=== PATIENT | male | born 1935 | race Caucasian/White ===

== ENCOUNTER → 2023-11-27 | Outpatient (BNV) | payer MEDICARE, BC, SELFPAY | PROVIDERS: PCP Hospitalist; Visit Provider Internal Medicine Hypertension Specialist | DX: N18.6 End stage renal disease (principal) | CPT/HCPCS: 90961 ==

== ENCOUNTER → 2023-12-28 | Outpatient (BNV) | payer MEDICARE, BC, SELFPAY | PROVIDERS: PCP Hospitalist; Visit Provider Internal Medicine Hypertension Specialist | DX: N18.6 End stage renal disease (principal) | CPT/HCPCS: 90961 ==

== ENCOUNTER → 2024-01-26 | Outpatient (BNV) | payer MEDICARE, BC, SELFPAY | PROVIDERS: PCP Hospitalist; Visit Provider Internal Medicine Hypertension Specialist | DX: N18.6 End stage renal disease (principal) | CPT/HCPCS: 90961 ==

== ENCOUNTER → 2024-02-26 | Outpatient (BNV) | payer MEDICARE, BC, SELFPAY | PROVIDERS: PCP Hospitalist; Visit Provider Internal Medicine Hypertension Specialist | DX: N18.6 End stage renal disease (principal) | CPT/HCPCS: 90962 ==

== ENCOUNTER → 2024-04-01 15:57 | Outpatient (BNVA) | payer MEDICARE, BC, SELFPAY | PROVIDERS: PCP Hospitalist; Visit Provider Internal Medicine Hypertension Specialist ==

== ENCOUNTER → 2024-04-27 | Outpatient (BNV) | payer MEDICARE, BC, SELFPAY | PROVIDERS: PCP Hospitalist; Visit Provider Internal Medicine Hypertension Specialist | DX: N18.6 End stage renal disease (principal) | CPT/HCPCS: 90961 ==

== ENCOUNTER → 2024-05-27 | Outpatient (BNV) | payer MEDICARE, BC, SELFPAY | PROVIDERS: PCP Hospitalist; Visit Provider Internal Medicine Hypertension Specialist | DX: N18.6 End stage renal disease (principal) | CPT/HCPCS: 90960 ==

== ENCOUNTER 2024-06-03 12:29 | Inpatient (IN) | payer MEDICARE, BC, SELFPAY ==
[2024-06-03] VITALS (14 sets, daily range): BP systolic 92–151; BP diastolic 36–98; PULSE 49–89; RESP 12–22; TEMP 36.1–36.9; O2SAT 94–100; BMI 22.7
--- NOTE | ~2024-06-03 | XR_ITS ---
EXAMINATION: XR CHEST CLINICAL INFORMATION: Generalized weakness, anemia COMPARISON: None available. TECHNIQUE: Frontal view of the chest was obtained. FINDINGS: Heart is enlarged with postsurgical changes overlying the mediastinum consistent with prior valve replacement and CABG. Right sided perm catheter is seen with the distal tip in the right atrium in good position. No acute vascular congestion is seen. Chronic appearing interstitial thickening noted. No focal airspace consolidations. No significant pleural effusions. Degenerative changes seen in the right shoulder joint XR/XR chest 1V IMPRESSION: No acute pulmonary process. Chronic appearing interstitial thickening. Cardiomegaly with postsurgical changes.
--- NOTE | ~2024-06-03 | CT_ITS ---
EXAMINATION: CT ABDOMEN AND PELVIS WITHOUT CONTRAST CLINICAL INFORMATION: Abdominal pain. Rectal bleeding. Anemia. COMPARISON: None available. TECHNIQUE: Multidetector volumetric imaging was performed from the superior aspect of the liver through the pubic symphysis. Sagittal and coronal reformatted images were obtained on the technologist's workstation. This CT examination was performed using dose optimization techniques as appropriate, variously including the following: *Automated exposure control *Adjustment of mA and/or kV according to patient size (this includes techniques or standardized protocols for targeted exams where dose is matched to indication/reason for exam; i.e. extremities or head) *Use of iterative reconstruction technique DLP: 428 mGy-cm FINDINGS: LUNG BASES: Heart size is enlarged. Heavy coronary artery calcifications. No pericardial effusion. Vascular calcifications of aorta. Lung bases normally aerated. LIVER, GALLBLADDER, AND BILIARY TREE: Low attenuating mass containing scattered coarse calcifications involving the posterior right lobe of liver, segment 7. Status post cholecystectomy. PANCREAS: Fatty atrophy of the pancreas. No acute abnormality of the pancreas. SPLEEN: Unremarkable. ADRENAL GLANDS: Unremarkable. KIDNEYS AND URETERS: The kidneys are normal in size, shape, and attenuation. No hydronephrosis, hydroureter, or calculi seen. No perinephric stranding. BLADDER: Bladder partially obscured by streak artifact from right hip replacement. No mass or calculus is evident. GASTROINTESTINAL TRACT: Sigmoid colon is redundant looping toward the right side of the abdomen. No acute abnormality of the bowel. There is no bowel wall thickening /edema. There is no bowel obstruction. There is a moderate volume of stool in the colon. The appendix is normal . The small bowel loops are unremarkable. The stomach is normal. There is no hiatal hernia. ABDOMINAL WALL: No significant hernia is appreciated. LYMPH NODES: Normal. VASCULAR: Vascular calcifications throughout the abdomen and the pelvis. There is no aneurysm. PELVIC VISCERA: Unremarkable. OSSEOUS STRUCTURES: Advanced multilevel degenerative spondylosis spine. Status post median sternotomy. Status post right hip replacement. Heterogeneous density of the bone. This is nonspecific. Could be due to osteopenia, however bony metastatic change has not excluded. Consider bone scan for follow-up. There are chronic appearing bone erosions at the superior endplate of the L4 vertebrae. CT/CT abdomen pelvis wo IV con IMPRESSION: 1. No acute abnormality the abdomen or pelvis. 2. Low attenuating mass in the right lobe of liver. 3. Multifocal radiolucent and osteosclerotic lesions the visualized osseous skeleton suspicious for bony metastatic disease. Bone scan may be helpful for follow-up. Fleischner guidelines were followed.
--- NOTE | 2024-06-03 12:59 | ECG_ITS ---
Test Reason : ANEMIA/WEAKNESS Blood Pressure : / mmHG Vent. Rate : 069 BPM Atrial Rate : 000 BPM P-R Int : 000 ms QRS Dur : 160 ms QT Int : 462 ms P-R-T Axes : 000 262 -05 degrees QTc Int : 495 ms Atrial fibrillation with premature ventricular or aberrantly conducted complexes Right bundle branch block Left anterior fascicular block Abnormal ECG No previous ECGs available Referred By: Samantha Jenkins Electronically Signed By:Vasu Kiran
--- NOTE | 2024-06-03 13:01 | ED_ITS ---
HPI - General Adult General Chief complaint: General Medical Stated complaint: (NO AGE GIVEN) ABN LABS,DIALYSIS THIS AM PER EMS Time Seen by Provider: 06/03/24 12:48 Source: patient, family ( spouse) and EMS Mode of arrival: EMS Limitations: no limitations History of Present Illness ED Provider: DR. Jenkins HPI narrative: 88-year-old male with known history of end-stage renal disease follow-up with Dr. Castillo who sent the patient to the ER after had 2 hours dialysis session today for further evaluation of generalized weakness, dark stool, low H and H with hemoglobin of 7.4. patient still able to make few cc of urine daily. Patient also with known history of atrial fibrillation taking Eliquis. Noted dark stool for the past few days, patient been having generalized weakness, and a of abdominal pain, neck pain. No fever, no chills, no bright red blood from rectum, no vomiting or nausea. Related Data Home Medications ?Medication ?Instructions ?Recorded ?Confirmed amlodipine 5 mg tablet 5 mg PO DAILY 04/01/24 apixaban 2.5 mg tablet (Eliquis) 2.5 mg PO BID 04/01/24 doxazosin 4 mg tablet 4 mg PO DAILY 04/01/24 insulin glargine 100 unit/mL (3 5 - 10 unit subcut QPM 04/01/24 mL) subcutaneous pen (Lantus Solostar U-100 Insulin) isosorbide mononitrate 60 mg 60 mg PO DAILY 04/01/24 tablet,extended release 24 hr oxycodone 5 mg tablet 5 mg PO TID PRN 04/01/24 Previous Rx's ?Medication ?Instructions ?Recorded prednisone 10 mg tablet 10 mg PO DAILY #30 tabs 05/21/24 Allergies Allergy/AdvReac Type Severity Reaction Status Date / Time No Known Allergies Allergy Verified 06/03/24 12:52 Review of Systems 2 Review of Systems: All other systems are reviewed and are negative Constitutional: Reports as per HPI and Reports no additional constitutional complaints Eyes: Reports as per HPI and Reports no additional eye complaints Reports system reviewed and no additional complaints, except as documented Cardiovascular: Reports as per HPI and Reports no additional cardiovascular complaints Respiratory: Reports as per HPI and Reports no additional respiratory complaints Gastrointestinal: Reports as per HPI and Reports no additional gastrointestinal complaints Genitourinary: Reports no additional female genitourinary complaints Musculoskeletal: Reports no additional musculoskeletal complaints Skin/Breast: Reports system reviewed and no additional complaints, except as docu Psychiatric: Reports no additional psychiatric complaints Endocrine: Reports no additional endocrine complaints Hematologic/Lymphatic: Reports no additional hematologic/lymphatic complaints Allergic/Immunologic: Reports no additional allergic/immunologic complaints Reports system reviewed and no additional complaints, except as documented and Reports Abnormal speech present [facility] Social History Social History Smoked in Last 30 Days: No Use of substances other than those prescribed or required for medical reasons: No Advance Directives: No Advance Directives Information Provided: Yes Physical Exam ED Vital Signs: Vital Signs - 24 hr 06/03/24 12:49 06/03/24 13:24 06/03/24 14:21 Temperature 98.4 F Pulse Rate 58 Respiratory Rate 18 Blood Pressure 92/42 L 129/36 L 151/75 H Pulse Oximetry 94 Oxygen Delivery Method Room Air Oxygen Flow Rate 06/03/24 14:30 06/03/24 14:53 06/03/24 15:38 Temperature 98.2 F 98.1 F Pulse Rate 64 65 54 Respiratory Rate 16 18 12 Blood Pressure 151/75 H 100/46 L 132/74 Pulse Oximetry Oxygen Delivery Method Nasal Cannula Oxygen Flow Rate 06/03/24 15:43 06/03/24 16:45 Temperature 98.1 F Pulse Rate 71 Respiratory Rate 17 Blood Pressure 138/53 L Pulse Oximetry 100 96 Oxygen Delivery Method Nasal Cannula Nasal Cannula Oxygen Flow Rate 2 2 BMI result Body Mass Index 22.7 Vital signs have been reviewed and appear to be correct. Blood pressure elevated. Heart rate normal. Respiratory rate normal. Temperature normal. Oxygen saturation normal. Appearance: Alert. Oriented X3. No acute distress. Head: Normal external exam. Normocephalic. Atraumatic. No Nicolas signs noted. No raccoon eyes noted Eyes: PERRLA. EOMI. Conjunctiva and sclera normal. Eyelids normal. ENT: TM's Normal. Pharynx normal. Uvula midline. Moist mucous membranes. No trismus noted. No drooling noted. No muffled voice noted. Neck: Normal inspection. Neck supple. FROM. No adenopathy. Thyroid Normal. No meningeal signs. No neck mass noted. CVS: Normal heart rate and rhythm. Heart sound normal. No murmurs noted. Pulses normal throughout. Respiratory: No respiratory distress. Painless inspiration. Breath sounds normal. No wheezes/rales/rhonchi noted. Chest nontender. No accessory muscle usage noted or decreased air movement noted. Abdomen: Soft and nontender. Bowel sounds normal in all 4 quadrants. No distention noted. No organomegaly noted. No visible injury noted. Rectal exam: Dark stool was trace guaiac positive. Back: No CVA tenderness. Full range of motion noted. Skin: Skin warm and dry. Normal skin color. Normal skin turgor. No rashes/lesions/lacerations noted. Extremities: No lower extremity edema. Extremities exhibit normal range of motion. Extremities nontender. Neuro: Oriented X 3. Cranial nerve exam: II-XII are grossly intact No motor deficit. No sensory deficit. Reflexes normal. Course Reevaluation(s) Reevaluation #1: End-stage renal disease on dialysis with anemia according to Dr. Castillo no old labs to compare in our facility. Consider 2 units of blood transfusion, patient agreed and signed consent for the patient. PPI. Consider hospitalization for further GI bleed workup. Time: 13:05 Reevaluation #2: troponin is elevated likely secondary to CKD no delta change, no chest pain, no EKG Ischemic changes. Time: 17:32 Medications Administered Discontinued Medications Generic Name Dose Route Start Last Admin Trade Name Tyshawnq PRN Reason Stop Dose Admin Furosemide 20 mg 06/03/24 13:45 06/03/24 14:21 Furosemide 20 Mg/2 Ml Vial IVPUSH 06/03/24 13:46 20 mg ONCE ONE Administration Protocol Sodium Chloride 1,000 mls @ 500 mls/hr 06/03/24 12:59 06/03/24 13:19 Ns IV 06/03/24 14:58 Not Given .Q2H ONE Sodium Chloride 500 mls @ 500 mls/hr 06/03/24 13:30 06/03/24 14:04 Ns IV 06/03/24 14:29 0 mls/hr .Q1H ADA Infusion Pantoprazole Sodium 40 mg 06/03/24 13:05 06/03/24 13:21 Pantoprazole Sodium 40 Mg/10 Ml Vial IVPUSH 06/03/24 13:06 40 mg ONCE ONE Administration Medical Decision Making Differential Diagnosis Differential Diagnoses: The differential diagnosis associated with the presentation includes ( ACS, GI bleed, coagulopathy, electrolyte derangement, severe anemia, volume overload, dialysis needs.) Admission/Observation Consideration of admission/observation: Escalation of care including admission/observation considered Consult Healthcare Provider Management of the patient was discussed with: Hospitalist ( Dr. Negro) Lab Data MDM Lab Attestation statement: I reviewed the patient's lab results. 06/03/24 13:12 06/03/24 13:12 Labs: Lab Results 06/03/24 06/03/24 Range/Units 13:12 16:38 WBC 10.6 (4.8-10.8) X10*3/uL RBC 2.43 L (4.60-5.80) X10*6/uL Hgb 7.4 L (14.0-18.0) g/dl Hct 23.2 L (42.0-52.0) % MCV 95.5 (80.0-98.0) fL MCH 30.5 (27.0-33.0) pg MCHC 31.9 (31.0-36.0) g/dl RDW 17.2 H (11.0-16.0) % Plt Count 202 (160-400) X10*3/uL MPV 9.8 (9.4-12.4) fL Immature Gran % (Auto) 1.2 H (0.0-0.4) % Neut % (Auto) 73.7 H (45-73) % Lymph % (Auto) 13.4 L (20-40) % [place] % (Auto) 9.5 (2-11) % Eos % (Auto) 1.8 (0-4) % Baso % (Auto) 0.4 (0-2) % Lymph # (Auto) 1.4 (1.2-4.9) X10*3/uL [place] # (Auto) 1.0 (0.1-1.2) X10*3/uL Eos # (Auto) 0.2 (0.0-0.4) X10*3/uL Baso # (Auto) 0.0 (0.0-0.2) X10*3/uL Abs Immat Gran (auto) 0.13 H (0.00-0.03) X10*3/uL Absolute Neuts (auto) 7.8 (2.0-8.3) x10*3/uL Absolute Nucleated RBC 0.000 (0.0-0.012) X10*3/uL Nucleated RBC % (auto) 0.0 (0.0-0.2) /100WBC PT 16.9 H (11.1-13.3) SEC INR 1.4 H (0.9-1.1) APTT 31.0 (26.0-36.8) SEC Sodium 138 (135-145) mmol/L Potassium 4.6 (3.3-5.1) mmol/L Chloride 99 (96-108) mmol/L Carbon Dioxide 26 (22-29) mmol/L Anion Gap 18 (12-20) BUN 54 H (9-16) mg/dL Creatinine 5.43 H* (0.5-1.4) mg/dL Estim Creat Clear Calc 8.7 Estimated GFR 10 Random Glucose 162 H (60-115) mg/dL Calcium 9.0 (8.4-10.2) mg/dL Total Bilirubin 0.7 (0.0-1.0) mg/dL Direct Bilirubin 0.3 (0.0-0.5) mg/dL AST 12 (5-37) U/L ALT 5 (0-40) U/L Alkaline Phosphatase 45 (39-117) U/L Troponin I High Sens 275.1 H* 256.7 H* (<3.5-35.0) ng/L B-Natriuretic Peptide 824 H (<100) pg/mL Total Protein 6.1 L (6.5-8.0) g/dL Albumin 3.7 (3.5-5.0) g/dL Lipase 18 (8-78) U/L Stool Occult Blood POSITIVE (NEGATIVE) Blood Type A Positive Antibody Screen NEGATIVE Crossmatch See Detail Independent Interpretation I performed an independent interpretation of an: EKG ( AFib at 69 beats per minutes, was frequent PVCs, RBBB no old EKG to compare. ), Plain X-Ray (No acute pulmonary process. Chronic appearing interstitial thickening. Cardiomegaly with postsurgical changes. ) and CT Scan ( Abdomen pelvis:1. No acute abnormality the abdomen or pelvis. 2. Low attenuating mass in the right lobe of liver. 3. Multifocal radiolucent and osteosclerotic lesions the visualized osseous skeleton suspicious for bony metastatic disease. Bone scan may be helpful for follow-up. ) Radiology Impression Discussion of test interpretation with radiology: I have reviewed the radiologist's reading. Chronic Conditions Patient?s care impacted by: Other ( End-stage renal disease.) Critical Care Time Critical Care Time Critical Care Time: Yes Total Critical Care Time: 45 Attestation: The patient was critically ill with a high probability of imminent or life- threatening deterioration. I spent greater than 30 minutes of discontinuous time evaluating the patient, delivering critical care at the bedside, discussing evaluating data with consultants. Critical care time does not include time spent performing separately billable procedures or teaching. Time spent performing critical care was 45 minutes. Discharge Plan Discharge Clinical Impression: Anemia, Rectal bleed Patient Disposition: Admitted As Inpatient Print Language: Urdu
[2024-06-03 13:15] LABS: MANUAL DIFF FLAG NO
[2024-06-03 13:20] LABS: OBS Int Ctl Valid YES; OBS1 POSITIVE (NEGATIVE)
[2024-06-03] MEDS: 0.9 % Sodium Chloride 500 ML IV (13:21)
[2024-06-03] MEDS: Pantoprazole Sodium 40 MG/10 ML VIAL IVPUSH (13:21)
[2024-06-03 13:23] LABS: Basophils Percent Auto 0.4 % (0-2); Eosinophils Absolute Auto 0.2 X10*3/uL (0.0-0.4); Eosinophils Percent Auto 1.8 % (0-4); Hematocrit 23.2 % (42.0-52.0); Hemoglobin 7.4 g/dl (14.0-18.0); Imm Gran Abs Auto 0.13 X10*3/uL (0.00-0.03); Imm Gran Pct Auto 1.2 % (0.0-0.4); Lymphocytes Absolute Auto 1.4 X10*3/uL (1.2-4.9); Lymphocytes Percent Auto 13.4 % (20-40); Mean Corpuscular HGB Conc 31.9 g/dl (31.0-36.0); Mean Corpuscular Hemoglobin 30.5 pg (27.0-33.0); Mean Corpuscular Volume 95.5 fL (80.0-98.0); Mean Platelet Volume 9.8 fL (9.4-12.4); Monocytes Percent Auto 9.5 % (2-11); Neutrophils Absolute Auto 7.8 x10*3/uL (2.0-8.3); Neutrophils Percent Auto 73.7 % (45-73); Platelet Count 202 X10*3/uL (160-400); Red Blood Count 2.43 X10*6/uL (4.60-5.80); Red Cell Distribution Width 17.2 % (11.0-16.0); White Blood Count 10.6 X10*3/uL (4.8-10.8)
[2024-06-03 13:34] LABS: INTERNATIONAL NORM RATIO 1.4 (0.9-1.1); Prothrombin Time 16.9 SEC (11.1-13.3)
[2024-06-03 13:41] LABS: B Type Natriuretic Peptide 824 pg/mL (<100)
[2024-06-03 13:55] LABS: Alanine Aminotransferase 5 U/L (0-40); Albumin Level 3.7 g/dL (3.5-5.0); Alkaline Phosphatase 45 U/L (39-117); Anion Gap 18 (12-20); Aspartate Amino Transferase 12 U/L (5-37); Bilirubin Direct 0.3 mg/dL (0.0-0.5); Bilirubin Total 0.7 mg/dL (0.0-1.0); Blood Urea Nitrogen 54 mg/dL (9-16); Carbon Dioxide 26 mmol/L (22-29); Chloride 99 mmol/L (96-108); Glucose Random 162 mg/dL (60-115); Lipase 18 U/L (8-78); Potassium 4.6 mmol/L (3.3-5.1); Sodium 138 mmol/L (135-145); Total Protein 6.1 g/dL (6.5-8.0)
[2024-06-03 14:03] LABS: Troponin-I High Sensitivity 275.1 ng/L (<3.5-35.0)
[2024-06-03 14:04] LABS: Creatinine Clr Calc Pharmacy 8.7; Estimated Glomerular Filt Rate 10
--- NOTE | 2024-06-03 14:05 | PC.NURSE ---
Critical trop 275.1 and critical creatinine 5.43- primary RN and MD notified via [facility] [facility]
[2024-06-03] MEDS: Furosemide 20 MG/2 ML VIAL IVPUSH (14:21)
[2024-06-03 17:22] LABS: Troponin-I High Sensitivity 256.7 ng/L (<3.5-35.0)
--- NOTE | 2024-06-03 17:53 | PM.IMHP ---
History of Present Illness Date of Service: 06/03/24 Chief Complaint: melena 88M PMH ESRD, pafib on eliquis, cad s/p cabg, htn, , chronic systolic chf, TIA, dm, pvd, chronic unspecified pruritis on prednisone, sent in for anemia. Patient has been feeling weak over the last few days. Has noted black stools for 2-3 days. Had labs drawn 3 days prior to presentation and hemoglobin came back at 7.4. At hemodialysis was feeling weak so was sent into the ED for further eval. In ED black stools were occult positive. Patient denies chest pain, shortness of breath, fever, chills. Denies NSAID use. He does have history of GI bleeds of unclear origin. Review of Systems Review of Systems: Yes all other systems are reviewed and are negative [facility] Medical History (Updated 06/03/24 @ 17:58 by Chidi Beard MD) ESRD (end stage renal disease) Social History Smoked in Last 30 Days: No Use of substances other than those prescribed or required for medical reasons: No Advance Directives: No Advance Directives Information Provided: Yes Meds Allergies Allergy/AdvReac Type Severity Reaction Status Date / Time No Known Allergies Allergy Verified 06/03/24 12:52 Active Medications: Current Medications Acetaminophen (Acetaminophen 325 Mg Tablet) 650 mg PO Q6H PRN PRN Reason: Pain, Mild (Pain Scale 1-3), fever or headache Calcium Carbonate (Calcium Carbonate 750 Mg Tab.Chew) 750 mg PO Q4H PRN PRN Reason: Heartburn Glucose (Glucose Gel 15 Gm Gel..Gram.) 15 gm PO Q15M PRN; Protocol PRN Reason: per Hypoglycemia Standing Ord. Dextrose (D10) 250 mls @ 750 mls/hr IV Q15M PRN; Protocol PRN Reason: per Hypoglycemia Standing Ord. Insulin Human Lispro (Insulin Lispro 100 Unit/Ml 3 Ml Vial) 0 unit SUBCUT QIDACHS [facility]; Protocol Magnesium Hydroxide (Milk Of Magnesia 30 Ml Oral.Susp) 30 ml PO DAILY PRN PRN Reason: Constipation Melatonin (Melatonin 3 Mg Tablet) 6 mg PO BEDTIME PRN PRN Reason: Insomnia Pantoprazole Sodium (Pantoprazole Sodium 40 Mg/10 Ml Vial) 40 mg IVPUSH BID@0630,1630 [facility] Sodium Chloride (0.9 % Sodium Chloride Flush 3 Ml Syringe) 3 ml IVFLUSH QSHIFT [facility] Home Medications ?Medication ?Instructions ?Recorded ?Confirmed ?Last Taken ?Type amlodipine 5 mg tablet 5 mg PO DAILY 04/01/24 Unknown History apixaban 2.5 mg tablet (Eliquis) 2.5 mg PO BID 04/01/24 Unknown History doxazosin 4 mg tablet 4 mg PO DAILY 04/01/24 Unknown History insulin glargine 100 unit/mL (3 5 - 10 unit subcut QPM 04/01/24 Unknown History mL) subcutaneous pen (Lantus Solostar U-100 Insulin) isosorbide mononitrate 60 mg 60 mg PO DAILY 04/01/24 Unknown History tablet,extended release 24 hr oxycodone 5 mg tablet 5 mg PO TID PRN Panic Attack(S) 04/01/24 Unknown History atorvastatin 40 mg tablet 40 mg PO DAILY 06/03/24 Unknown History levothyroxine 25 mcg tablet 25 mcg PO QAM 06/03/24 Unknown History sodium zirconium cyclosilicate 10 g PO 06/03/24 Unknown History gram oral powder packet (Lokelma) Physical Exam Vital Signs and Narrative: Vital Signs: Last Vital Signs Temp 98.1 F 06/03/24 16:45 Pulse 71 06/03/24 16:45 Resp 17 06/03/24 16:45 BP 138/53 L 06/03/24 16:45 Pulse Ox 96 06/03/24 16:45 O2 Del Method Nasal Cannula 06/03/24 16:45 O2 Flow Rate 2 06/03/24 16:45 BMI result Body Mass Index 22.7 General: AO X 3, no acute distress Resp: CTA bilateral, no accessory muscles used CVS: S1,S2,RRR, murmur GI: soft, non tender, non distended Neuro: motor grossly intact, alert Results Labs 06/03/24 13:12 06/03/24 13:12 Labs: Laboratory Results - last 24 hr 06/03/24 06/03/24 13:12 16:38 MCV 95.5 MCH 30.5 MCHC 31.9 RDW 17.2 H Plt Count 202 MPV 9.8 Immature Gran % (Auto) 1.2 H Neut % (Auto) 73.7 H Lymph % (Auto) 13.4 L [place] % (Auto) 9.5 Eos % (Auto) 1.8 Baso % (Auto) 0.4 Lymph # (Auto) 1.4 [place] # (Auto) 1.0 Eos # (Auto) 0.2 Baso # (Auto) 0.0 Abs Immat Gran (auto) 0.13 H Absolute Neuts (auto) 7.8 Absolute Nucleated RBC 0.000 Nucleated RBC % (auto) 0.0 PT 16.9 H INR 1.4 H APTT 31.0 Anion Gap 18 Estim Creat Clear Calc 8.7 Estimated GFR 10 Random Glucose 162 H Calcium 9.0 Total Bilirubin 0.7 Direct Bilirubin 0.3 AST 12 ALT 5 Alkaline Phosphatase 45 Troponin I High Sens 275.1 H* 256.7 H* B-Natriuretic Peptide 824 H Total Protein 6.1 L Albumin 3.7 Lipase 18 Stool Occult Blood POSITIVE Blood Type A Positive Antibody Screen NEGATIVE Crossmatch See Detail Imaging Radiologist's Impressions: Impressions Chest X-Ray 06/03/24 13:40 IMPRESSION: No acute pulmonary process. Chronic appearing interstitial thickening. Cardiomegaly with postsurgical changes. Abdomen/Pelvis CT 06/03/24 15:49 IMPRESSION: 1. No acute abnormality the abdomen or pelvis. 2. Low attenuating mass in the right lobe of liver. 3. Multifocal radiolucent and osteosclerotic lesions the visualized osseous skeleton suspicious for bony metastatic disease. Bone scan may be helpful for follow-up. Fleischner guidelines were followed. Assessment and Plan (1) ESRD (end stage renal disease): Status: Acute Plan 88M PMH ESRD, pafib on eliquis, cad s/p cabg, htn, , chronic systolic chf, TIA, dm, pvd, sent in for anemia Acute blood loss anemia Suspect upper GI bleed Hold apixaban IV ppi GI eval getting 2 units prbc monitor cbc esrd hd, nephro pafib hold eliquis, rate is controlled dm insulin sliding scale , chronic systolic chf lasix with transfusions, monitor pvd, cad holding eliquis, continue statin chronic unspecified pruritis on low dose prednisone dvt prophylaxis - mechanical due to gi bleed full code patient with active bleed needing transfusions, close monitoring, therefore expected to need atleast 2 midnights inpatient Quality Stroke Does the patient have a stroke diagnosis?: No VTE Prior VTE?: Yes VTE Risk Level:: Medical - moderate - high VTE Device Contraindication: N/A - Device Ordered VTE Drug Contraindication: Treatment Not Tolerated
--- NOTE | 2024-06-03 19:00 | PHA.MEDREC ---
Pharmacy Consult ? Medication Reconciliation Pharmacy has completed the medication reconciliation. spoke to patient at bedside to confirm med list. Patients states her takes Lantus 8-12 units at bedtime, Claim [place] [facility] [place] is 8 units at bedtime and Novolog flex pen he injects 7 units before dinner, claim from [facility] is 5 units before dinner. Patient says she gives him Oxycodone 5 mg bid and 5 mg prn only if he needs it. Lokelma powder packets is only when his potassium is high.
--- NOTE | 2024-06-03 19:20 | PC.NURSE ---
Confirmed with provider Dr. Jenkins still wants 2 unit of PRBCs, to run at a low rate.
[2024-06-03 21:08] LABS: Glucose, Whole Blood 158 mg/dL (60-115)
[2024-06-03] MEDS: Insulin Glargine,Hum.rec.anlog 100 UNIT/ML 10 ML VIAL 6 UNIT SUBCUT (21:31)
[2024-06-03] MEDS: Insulin Lispro 100 UNIT/ML 3 ML VIAL SUBCUT (21:31)
[2024-06-03] MEDS: 0.9 % Sodium Chloride Flush 3 ML SYRINGE IVFLUSH (21:32)
[2024-06-03] MEDS: oxyCODONE HCl Immed Release 5 MG TABLET PO (22:56)
[2024-06-04] VITALS (7 sets, daily range): BP systolic 108–149; BP diastolic 39–95; PULSE 49–79; RESP 14–20; TEMP 36.2–36.3; O2SAT 95–99
--- NOTE | 2024-06-04 00:10 | PC.NURSE ---
Patient refused to put sequentials on. Educated patient and his that the sequentials help to prevent blood clots. Dr. Rafael feliciano.
[2024-06-04] MEDS: Levothyroxine Sodium 25 MCG TABLET PO (05:37)
[2024-06-04] MEDS: Pantoprazole Sodium 40 MG/10 ML VIAL IVPUSH (05:37)
[2024-06-04 06:00] LABS: Hematocrit 28.7 % (42.0-52.0); Hemoglobin 9.2 g/dl (14.0-18.0); Mean Corpuscular HGB Conc 32.1 g/dl (31.0-36.0); Mean Corpuscular Hemoglobin 30.9 pg (27.0-33.0); Mean Corpuscular Volume 96.3 fL (80.0-98.0); Mean Platelet Volume 9.7 fL (9.4-12.4); NRBC Pct Auto 0.5 /100WBC (0.0-0.2); Platelet Count 151 X10*3/uL (160-400); Red Blood Count 2.98 X10*6/uL (4.60-5.80); Red Cell Distribution Width 16.9 % (11.0-16.0); White Blood Count 8.4 X10*3/uL (4.8-10.8)
--- NOTE | 2024-06-04 06:09 | PC.NURSE ---
Pt unable to void overnight, bladder scanned at 0545 for 108 ml. Will continue to monitor.
[2024-06-04 06:26] LABS: Anion Gap 17 (12-20); Blood Urea Nitrogen 65 mg/dL (9-16); Calcium 8.5 mg/dL (8.4-10.2); Carbon Dioxide 24 mmol/L (22-29); Chloride 103 mmol/L (96-108); Creatinine Clr Calc Pharmacy 7.5; Estimated Glomerular Filt Rate 8; Glucose Fasting 66 mg/dL (60-99); Potassium 4.7 mmol/L (3.3-5.1); Sodium 139 mmol/L (135-145)
[2024-06-04 07:43] LABS: Glucose, Whole Blood 67 mg/dL (60-115)
[2024-06-04] MEDS: Dextrose 10 % 250 ML 750 ML IV (08:16)
[2024-06-04] MEDS: 0.9 % Sodium Chloride Flush 3 ML SYRINGE IVFLUSH (08:18)
[2024-06-04] MEDS: oxyCODONE HCl Immed Release 5 MG TABLET PO (08:42)
[2024-06-04] MEDS: amLODIPine Besylate 5 MG TABLET PO (08:42)
[2024-06-04] MEDS: predniSONE 10 MG TABLET PO (08:42)
[2024-06-04] MEDS: Isosorbide Mononitrate 60 MG TAB.ER.24H PO (08:42)
[2024-06-04 09:33] LABS: Glucose, Whole Blood 154 mg/dL (60-115)
--- NOTE | 2024-06-04 11:23 | HO.PM.IMPN ---
Subjective Subjective Date of Service: 06/04/24 Interval History: no further melena seen Physical Exam Vital Signs: Vital Signs: Last Vital Signs Temp 97.1 F 06/04/24 07:30 Pulse 54 06/04/24 07:30 Resp 20 06/04/24 07:30 BP 149/65 H 06/04/24 07:30 Pulse Ox 98 06/04/24 07:30 O2 Del Method Room Air 06/04/24 07:30 O2 Flow Rate 2 06/03/24 21:00 BMI result Body Mass Index 22.7 General: AO X 3, no acute distress Resp: CTA bilateral, no accessory muscles used CVS: S1,S2,RRR GI: soft, non tender, non distended Neuro: motor grossly intact, alert Psych: appropriate affect, appropriate insight Objective Data Active Medications Acetaminophen (Acetaminophen 325 Mg Tablet) 650 mg PO Q6H PRN PRN Reason: Pain, Mild (Pain Scale 1-3), fever or headache Amlodipine Besylate (Amlodipine Besylate 5 Mg Tablet) 5 mg PO DAILY [facility]; Protocol Last Admin: 06/04/24 08:42 Dose: 5 mg Documented By: BERNARD Atorvastatin Calcium (Atorvastatin Calcium 40 Mg Tablet) 40 mg PO DAILY [facility] TO [facility] Last Admin: 06/04/24 08:42 Dose: Not Given Documented By: BERNARD Non-Admin Reason: Patient Asleep Calcium Carbonate (Calcium Carbonate 750 Mg Tab.Chew) 750 mg PO Q4H PRN PRN Reason: Heartburn Doxazosin Mesylate (Doxazosin Mesylate 2 Mg Tablet) 4 mg PO BEDTIME [facility]; Protocol Glucose (Glucose Gel 15 Gm Gel..Gram.) 15 gm PO Q15M PRN; Protocol PRN Reason: per Hypoglycemia Standing Ord. Dextrose (D10) 250 mls @ 750 mls/hr IV Q15M PRN; Protocol PRN Reason: per Hypoglycemia Standing Ord. Last Infusion: 06/04/24 08:45 Dose: Infused Documented By: BERNARD Insulin Glargine (Insulin Glargine,Hum.Rec.Anlog 100 Unit/Ml 10 Ml Vial) 6 unit SUBCUT BEDTIME ADA Insulin Human Lispro (Insulin Lispro 100 Unit/Ml 3 Ml Vial) 0 unit SUBCUT QIDACHS [facility]; Protocol Last Admin: 06/04/24 07:45 Dose: Not Given Documented By: BERNARD Non-Admin Reason: No Insulin Coverage Isosorbide Mononitrate (Isosorbide Mononitrate 60 Mg Tab.Er.24h) 60 mg PO DAILY [facility]; Protocol Last Admin: 06/04/24 08:42 Dose: 60 mg Documented By: BERNARD Levothyroxine Sodium (Levothyroxine Sodium 25 Mcg Tablet) 25 mcg PO DAILY@0630 [facility] Last Admin: 06/04/24 05:37 Dose: 25 mcg Documented By: TAMMY Magnesium Hydroxide (Milk Of Magnesia 30 Ml Oral.Susp) 30 ml PO DAILY PRN PRN Reason: Constipation Melatonin (Melatonin 3 Mg Tablet) 6 mg PO BEDTIME PRN PRN Reason: Insomnia Oxycodone HCl (Oxycodone Hcl Immed Release 5 Mg Tablet) 5 mg PO DAILY PRN PRN Reason: Pain, Severe (Pain Scale 7-10) Oxycodone HCl (Oxycodone Hcl Immed Release 5 Mg Tablet) 5 mg PO BID [facility] Last Admin: 06/04/24 08:42 Dose: 5 mg Documented By: BERNARD Pantoprazole Sodium (Pantoprazole Sodium 40 Mg/10 Ml Vial) 40 mg IVPUSH BID@0630,1630 [facility] Last Admin: 06/04/24 05:37 Dose: 40 mg Documented By: TAMMY Prednisone (Prednisone 10 Mg Tablet) 10 mg PO DAILY [facility] Last Admin: 06/04/24 08:42 Dose: 10 mg Documented By: BERNARD Sodium Chloride (0.9 % Sodium Chloride Flush 3 Ml Syringe) 3 ml IVFLUSH QSHIFT [facility] TO [facility] Last Admin: 06/04/24 08:18 Dose: 3 ml Documented By: BERNARD Sodium Zirconium Cyclosilicate (Sodium Zirconium Cyclosilicate 10 Gm Powd.Pack) 10 gm PO DAILY PRN PRN Reason: Hyperkalemia Labs 06/04/24 05:19 06/04/24 05:18 Labs: Laboratory Results - last 24 hr 06/03/24 06/03/24 06/03/24 13:12 16:38 20:59 MCV 95.5 MCH 30.5 MCHC 31.9 RDW 17.2 H Plt Count 202 MPV 9.8 Immature Gran % (Auto) 1.2 H Neut % (Auto) 73.7 H Lymph % (Auto) 13.4 L [place] % (Auto) 9.5 Eos % (Auto) 1.8 Baso % (Auto) 0.4 Lymph # (Auto) 1.4 [place] # (Auto) 1.0 Eos # (Auto) 0.2 Baso # (Auto) 0.0 Abs Immat Gran (auto) 0.13 H Absolute Neuts (auto) 7.8 Absolute Nucleated RBC 0.000 Nucleated RBC % (auto) 0.0 PT 16.9 H INR 1.4 H APTT 31.0 Anion Gap 18 Estim Creat Clear Calc 8.7 Estimated GFR 10 POC Glucose 158 H Random Glucose 162 H Fasting Glucose Calcium 9.0 Total Bilirubin 0.7 Direct Bilirubin 0.3 AST 12 ALT 5 Alkaline Phosphatase 45 Troponin I High Sens 275.1 H* 256.7 H* B-Natriuretic Peptide 824 H Total Protein 6.1 L Albumin 3.7 Lipase 18 Stool Occult Blood POSITIVE Blood Type A Positive Antibody Screen NEGATIVE Crossmatch See Detail 06/04/24 06/04/24 06/04/24 05:18 05:19 07:39 MCV 96.3 MCH 30.9 MCHC 32.1 RDW 16.9 H Plt Count 151 L D MPV 9.7 Immature Gran % (Auto) Neut % (Auto) Lymph % (Auto) [place] % (Auto) Eos % (Auto) Baso % (Auto) Lymph # (Auto) [place] # (Auto) Eos # (Auto) Baso # (Auto) Abs Immat Gran (auto) Absolute Neuts (auto) Absolute Nucleated RBC 0.040 H Nucleated RBC % (auto) 0.5 H PT INR APTT Anion Gap 17 Estim Creat Clear Calc 7.5 Estimated GFR 8 POC Glucose 67 Random Glucose Fasting Glucose 66 Calcium 8.5 Total Bilirubin Direct Bilirubin AST ALT Alkaline Phosphatase Troponin I High Sens B-Natriuretic Peptide Total Protein Albumin Lipase Stool Occult Blood Blood Type Antibody Screen Crossmatch 06/04/24 09:29 MCV MCH MCHC RDW Plt Count MPV Immature Gran % (Auto) Neut % (Auto) Lymph % (Auto) [place] % (Auto) Eos % (Auto) Baso % (Auto) Lymph # (Auto) [place] # (Auto) Eos # (Auto) Baso # (Auto) Abs Immat Gran (auto) Absolute Neuts (auto) Absolute Nucleated RBC Nucleated RBC % (auto) PT INR APTT Anion Gap Estim Creat Clear Calc Estimated GFR POC Glucose 154 H Random Glucose Fasting Glucose Calcium Total Bilirubin Direct Bilirubin AST ALT Alkaline Phosphatase Troponin I High Sens B-Natriuretic Peptide Total Protein Albumin Lipase Stool Occult Blood Blood Type Antibody Screen Crossmatch Assessment and Plan (1) Rectal bleed: Status: Acute Plan 88M PMH ESRD, pafib on eliquis, cad s/p cabg, htn, , chronic systolic chf, TIA, dm, pvd, sent in for anemia Acute blood loss anemia Suspected upper GI bleed Holding apixaban IV ppi GI appreciated - egd today got 2 units prbc - hgb improved appropriately monitor cbc esrd hd, 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 (seen on 2022 scan), 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
[2024-06-04 11:29] LABS: Glucose, Whole Blood 125 mg/dL (60-115)
--- NOTE | 2024-06-04 12:05 | MHC.SHP ---
Pre-Procedural Eval Section A - 24 Hr Update-Section A only Date of Service: 06/04/24 The patient is an INPATIENT: Yes Changes since office visit: No Cold of Flu in the past 2 weeks, No New Medical Problems, No Changes in Medication and No Patient answered all questions The patient has been examined within 24 hours of the surgical procedure. The History & Physical has been completed within 30 days and I have reviewed it.: Yes Section B - Complete if H&P > 30 days Chief Complaint: GI bleed Allergies: Allergies Allergy/AdvReac Type Severity Reaction Status Date / Time No Known Allergies Allergy Verified 06/03/24 12:52 Plan I have reviewed the history and physical and performed a pertinent physical examination on my patient. No changes have occurred unless specified. Time Spent With Patient Time: Total time managing care of this patient today ____ minutes.
--- NOTE | 2024-06-04 12:06 | PM.EVENT ---
Event Note Date of Service: 06/04/24 Event Note: GI consult dictated EGD planned for later today for evaluation anemia and black stools. Pt and are aware of risks and benefits and agree to proceed Time Spent With Patient Time: Total time managing care of this patient today ____ minutes.
--- NOTE | 2024-06-04 12:48 | CONS_ITS ---
DATE OF SERVICE: 06/04/2024 REFERRING PHYSICIAN: Dr. Beard REASON FOR CONSULTATION: Anemia and black stools. HISTORY OF PRESENT ILLNESS: The patient is a pleasant 88-year-old man, who is admitted to the hospital on June 03 after presenting to the emergency room from dialysis. He reports 3 days of black stools and feeling weakness without shortness of breath or chest pain. He was at dialysis and labs done before his admission showed a hemoglobin of 7.4. Following dialysis, he was referred to the emergency room. He does have a history of previous GI bleeding and reports undergoing upper endoscopy in [place] several years ago with possible treatment. He has also had a capsule endoscopy and reports 2 years ago, he underwent colonoscopy in [place] that showed a prolapse problem, which was diagnosed and treated there. Those records are not available. He denies significant alcohol, tobacco, or NSAID intake. He has been on prednisone for chronic skin condition, but has not been on routine proton pump inhibitor as an outpatient. Since admission, he has been started on IV pantoprazole. He also is on Eliquis for paroxysmal atrial fibrillation. He is unsure of the last dose. Since admission, he has been transfused 2 units of packed red blood cells with appropriate improvement in his hematocrit from 23.2 to 28.7. There has been no reported melena overnight. PAST MEDICAL HISTORY: 1. GI bleeding as above. 2. End-stage renal disease, currently on dialysis. 3. Aortic stenosis. 4. Coronary artery disease with history of bypass surgery. 5. Peripheral arterial disease with right leg stent placement. 6. Chronic systolic CHF. 7. TIA. 8. Diabetes mellitus. 9. Chronic pruritus as above. CURRENT MEDICATIONS: His current medication list is reviewed in the chart. ALLERGIES: THERE ARE NONE REPORTED. FAMILY HISTORY: This is reviewed with the patient and is negative for upper GI tract malignancy. SOCIAL HISTORY: There is no current tobacco, alcohol, or substance abuse. REVIEW OF SYSTEMS: SKIN: No pruritus currently. HEENT: Negative. CARDIOPULMONARY: No shortness of breath or chest pain. GASTROINTESTINAL: As above. GENITOURINARY: Negative. NEUROPSYCHIATRIC: Negative. PHYSICAL EXAMINATION: GENERAL: Shows a pleasant elderly male, lying comfortably in bed. VITAL SIGNS: Reviewed in electronic medical record and are stable. SKIN: Anicteric. HEENT: Shows no scleral icterus. NECK: Without lymphadenopathy or thyromegaly. LUNGS: Clear. HEART: Shows a regular rate and rhythm. S1, S2. No murmur. ABDOMEN: Soft without focal masses or tenderness. Bowel sounds are present. No organomegaly is noted. EXTREMITIES: Without edema. LABORATORY DATA AND IMAGING STUDIES: Reviewed. IMPRESSION: Anemia with black stools. This sounds suspicious for gastrointestinal blood loss from the upper gastrointestinal tract. At this point, I would recommend upper endoscopy for diagnosis and possible therapy as he will need to return to taking anticoagulation. I have discussed the procedure with his , and he and his agreed to proceed. We discussed risks and benefits of the procedure. I would recommend continuing to monitor his H and H as you are doing and continue with a proton pump inhibitor. Thanks for asking me to see him. I will follow him in the hospital with you. MD JELANI Campos/HOLLI / [id number]
--- NOTE | 2024-06-04 13:09 | P.CONAN_ITS ---
HPI - Anesthesia Eval Consult details Narrative: 88 yr old multiple comorbidities for endo PMFSH Active Problems Active Problems: All Active Problems Rectal bleed (Acute) Anemia (Acute) ESRD (end stage renal disease) (Acute) Past Medical History Medical History ESRD (end stage renal disease) Family History Family history of problems with anesthesia: No Surgical History History of Problems with Anesthesia: No Social History Social History Household Members: Spouse Housing: House Do you presently have visiting nurse or other home services: Yes (magazine hand's and visiting nurses.) Patient Tobacco Use Status: Never used Tobacco Meds Allergies Allergy/AdvReac Type Severity Reaction Status Date / Time No Known Allergies Allergy Verified 06/03/24 12:52 Active Medications: Current Medications Acetaminophen (Acetaminophen 325 Mg Tablet) 650 mg PO Q6H PRN PRN Reason: Pain, Mild (Pain Scale 1-3), fever or headache Amlodipine Besylate (Amlodipine Besylate 5 Mg Tablet) 5 mg PO DAILY [facility]; Protocol Last Admin: 06/04/24 08:42 Dose: 5 mg Atorvastatin Calcium (Atorvastatin Calcium 40 Mg Tablet) 40 mg PO DAILY [facility] Last Admin: 06/04/24 08:42 Dose: Not Given Calcium Carbonate (Calcium Carbonate 750 Mg Tab.Chew) 750 mg PO Q4H PRN PRN Reason: Heartburn Doxazosin Mesylate (Doxazosin Mesylate 2 Mg Tablet) 4 mg PO BEDTIME [facility]; Protocol Glucose (Glucose Gel 15 Gm Gel..Gram.) 15 gm PO Q15M PRN; Protocol PRN Reason: per Hypoglycemia Standing Ord. Dextrose (D10) 250 mls @ 750 mls/hr IV Q15M PRN; Protocol PRN Reason: per Hypoglycemia Standing Ord. Last Infusion: 06/04/24 08:45 Dose: Infused Insulin Glargine (Insulin Glargine,Hum.Rec.Anlog 100 Unit/Ml 10 Ml Vial) 6 unit SUBCUT BEDTIME [facility] Insulin Human Lispro (Insulin Lispro 100 Unit/Ml 3 Ml Vial) 0 unit SUBCUT QIDACHS [facility]; Protocol Last Admin: 06/04/24 11:42 Dose: Not Given Isosorbide Mononitrate (Isosorbide Mononitrate 60 Mg Tab.Er.24h) 60 mg PO DAILY [facility]; Protocol Last Admin: 06/04/24 08:42 Dose: 60 mg Levothyroxine Sodium (Levothyroxine Sodium 25 Mcg Tablet) 25 mcg PO DAILY@0630 [facility] Last Admin: 06/04/24 05:37 Dose: 25 mcg Magnesium Hydroxide (Milk Of Magnesia 30 Ml Oral.Susp) 30 ml PO DAILY PRN PRN Reason: Constipation Melatonin (Melatonin 3 Mg Tablet) 6 mg PO BEDTIME PRN PRN Reason: Insomnia Oxycodone HCl (Oxycodone Hcl Immed Release 5 Mg Tablet) 5 mg PO DAILY PRN PRN Reason: Pain, Severe (Pain Scale 7-10) Oxycodone HCl (Oxycodone Hcl Immed Release 5 Mg Tablet) 5 mg PO BID [facility] Last Admin: 06/04/24 08:42 Dose: 5 mg Pantoprazole Sodium (Pantoprazole Sodium 40 Mg/10 Ml Vial) 40 mg IVPUSH BID@0630,1630 [facility] Last Admin: 06/04/24 05:37 Dose: 40 mg Prednisone (Prednisone 10 Mg Tablet) 10 mg PO DAILY [facility] Last Admin: 06/04/24 08:42 Dose: 10 mg Sodium Chloride (0.9 % Sodium Chloride Flush 3 Ml Syringe) 3 ml IVFLUSH QSHIFT [facility] Last Admin: 06/04/24 08:18 Dose: 3 ml Sodium Zirconium Cyclosilicate (Sodium Zirconium Cyclosilicate 10 Gm Powd.Pack) 10 gm PO DAILY PRN PRN Reason: Hyperkalemia Home Medications ?Medication ?Instructions ?Recorded ?Confirmed ?Last Taken ?Type amlodipine 5 mg tablet 5 mg PO DAILY 04/01/24 06/03/24 05/31/24 History apixaban 2.5 mg tablet (Eliquis) 2.5 mg PO BID 04/01/24 06/03/24 06/03/24 History doxazosin 4 mg tablet 4 mg PO DAILY 04/01/24 06/03/24 06/02/24 History insulin glargine 100 unit/mL (3 8 - 12 unit subcut BEDTIME 04/01/24 06/03/24 06/02/24 History mL) subcutaneous pen (Lantus Solostar U-100 Insulin) isosorbide mononitrate 60 mg 60 mg PO DAILY 04/01/24 06/03/24 06/02/24 History tablet,extended release 24 hr oxycodone 5 mg tablet 5 mg PO BID 04/01/24 06/03/24 06/03/24 History acetaminophen 325 mg tablet 650 mg PO DAILY PRN Pain 06/03/24 06/03/24 Unknown History (Tylenol) atorvastatin 40 mg tablet 40 mg PO DAILY 06/03/24 06/03/24 06/02/24 History insulin aspart U-100 100 unit/mL 7 unit subcut DAILY 06/03/24 06/03/24 06/02/24 History (3 mL) subcutaneous pen (Novolog FlexPen U-100 Insulin aspart) levothyroxine 25 mcg tablet 25 mcg PO DAILY 06/03/24 06/03/24 06/02/24 History oxycodone 5 mg tablet 5 mg PO DAILY PRN Pain 06/03/24 06/03/24 Unknown History sodium zirconium cyclosilicate 10 10 g PO DAILY PRN Hyperkalemia 06/03/24 06/03/24 Unknown History gram oral powder packet (Lokelma) Exam Height,Weight and Vital Signs: Height 5 ft 7 in Weight 65.771 kg Last Vital Signs Temp 97.1 F 06/04/24 07:30 Pulse 54 06/04/24 07:30 Resp 20 06/04/24 07:30 BP 149/65 H 06/04/24 07:30 Pulse Ox 98 06/04/24 07:30 O2 Del Method Room Air 06/04/24 07:30 O2 Flow Rate 2 06/03/24 21:00 Pertinent Lab Results Pertinent Lab Results: Laboratory Tests 06/03/24 06/03/24 06/03/24 13:12 16:38 20:59 WBC 10.6 RBC 2.43 L Hgb 7.4 L Hct 23.2 L MCV 95.5 MCH 30.5 MCHC 31.9 RDW 17.2 H Plt Count 202 MPV 9.8 Immature Gran % (Auto) 1.2 H Neut % (Auto) 73.7 H Lymph % (Auto) 13.4 L [place] % (Auto) 9.5 Eos % (Auto) 1.8 Baso % (Auto) 0.4 Lymph # (Auto) 1.4 [place] # (Auto) 1.0 Eos # (Auto) 0.2 Baso # (Auto) 0.0 Abs Immat Gran (auto) 0.13 H Absolute Neuts (auto) 7.8 Absolute Nucleated RBC 0.000 Nucleated RBC % (auto) 0.0 PT 16.9 H INR 1.4 H APTT 31.0 Sodium 138 Potassium 4.6 Chloride 99 Carbon Dioxide 26 Anion Gap 18 BUN 54 H Creatinine 5.43 H* Estim Creat Clear Calc 8.7 Estimated GFR 10 POC Glucose 158 H Random Glucose 162 H Fasting Glucose Calcium 9.0 Total Bilirubin 0.7 Direct Bilirubin 0.3 AST 12 ALT 5 Alkaline Phosphatase 45 Troponin I High Sens 275.1 H* 256.7 H* B-Natriuretic Peptide 824 H Total Protein 6.1 L Albumin 3.7 Lipase 18 Stool Occult Blood POSITIVE Blood Type A Positive Antibody Screen NEGATIVE Crossmatch See Detail 06/04/24 06/04/24 06/04/24 05:18 05:19 07:39 WBC 8.4 RBC 2.98 L D Hgb 9.2 L D Hct 28.7 L D MCV 96.3 MCH 30.9 MCHC 32.1 RDW 16.9 H Plt Count 151 L D MPV 9.7 Immature Gran % (Auto) Neut % (Auto) Lymph % (Auto) [place] % (Auto) Eos % (Auto) Baso % (Auto) Lymph # (Auto) [place] # (Auto) Eos # (Auto) Baso # (Auto) Abs Immat Gran (auto) Absolute Neuts (auto) Absolute Nucleated RBC 0.040 H Nucleated RBC % (auto) 0.5 H PT INR APTT Sodium 139 Potassium 4.7 Chloride 103 Carbon Dioxide 24 Anion Gap 17 BUN 65 H Creatinine 6.27 H* Estim Creat Clear Calc 7.5 Estimated GFR 8 POC Glucose 67 Random Glucose Fasting Glucose 66 Calcium 8.5 Total Bilirubin Direct Bilirubin AST ALT Alkaline Phosphatase Troponin I High Sens B-Natriuretic Peptide Total Protein Albumin Lipase Stool Occult Blood Blood Type Antibody Screen Crossmatch 06/04/24 06/04/24 09:29 11:25 WBC RBC Hgb Hct MCV MCH MCHC RDW Plt Count MPV Immature Gran % (Auto) Neut % (Auto) Lymph % (Auto) [place] % (Auto) Eos % (Auto) Baso % (Auto) Lymph # (Auto) [place] # (Auto) Eos # (Auto) Baso # (Auto) Abs Immat Gran (auto) Absolute Neuts (auto) Absolute Nucleated RBC Nucleated RBC % (auto) PT INR APTT Sodium Potassium Chloride Carbon Dioxide Anion Gap BUN Creatinine Estim Creat Clear Calc Estimated GFR POC Glucose 154 H 125 H Random Glucose Fasting Glucose Calcium Total Bilirubin Direct Bilirubin AST ALT Alkaline Phosphatase Troponin I High Sens B-Natriuretic Peptide Total Protein Albumin Lipase Stool Occult Blood Blood Type Antibody Screen Crossmatch Airway Mallampati Class: II TM Dist: <=3cm Neck ROM: Limited Denture: Upper and Lower Heart: a fib Lungs: cta Assessment and Plan Assessment Anesthesia Assessment: Anesthesia Plan Discussed Final Anesthetic Review Family History of Problems with Anesthesia: No History of Problems with Anesthesia: No NPO: Yes ASA Class: IV Final Preanesthetic Review: No Changes in Pt Med Stat, Meds/Allgs Chart Reviewed, Consent Obtained/Reviewed and Anes Risks/Benef Reviewed Patient Risk: High Procedure Risk: Intermediate Anesthetic Plan Anesthetic Plan: MAC: Disposition: Standard PACU
--- NOTE | 2024-06-04 13:23 | PC.NURSE ---
two dime size skin tears noted to Left upper arm under blood pressure cuff. foam dressing applied x2.
--- NOTE | 2024-06-04 13:54 | PM.OP ---
Brief Operative Note Date of Service: 06/04/24 Pre-op diagnosis: anemia black stools Post-op diagnosis: same Procedure: EGD Surgeon: Leighton Marks MD Anesthesia: MAC Was an Weather Strip Mechanic used for this Procedure?: No Estimated blood loss (mL): 0 Pathology: none sent Condition: stable Disposition: PACU
--- NOTE | 2024-06-04 13:55 | PM.EVENT ---
Event Note Date of Service: 06/04/24 Event Note: EGD note dictated EGD is normal ok to restart ac large ecchymotic area on L upper leg ? if this is related to the anemia. Time Spent With Patient Time: Total time managing care of this patient today ____ minutes.
--- NOTE | 2024-06-04 14:18 | OP_ITS ---
DATE OF SERVICE: 06/04/2024 SURGEON: Leighton Marks MD INDICATIONS: Anemia and black stools. PREOPERATIVE DIAGNOSIS: POSTOPERATIVE DIAGNOSIS: PROCEDURE PERFORMED: Upper endoscopy. ESTIMATED BLOOD LOSS: COMPLICATIONS: ANESTHESIA: Monitored anesthesia care. ASSISTANTS: SPECIMENS: DESCRIPTION OF PROCEDURE: A history and physical was performed. The risks and benefits of the procedure were explained to the patient. Informed consent was obtained. The patient was placed in the left lateral decubitus position. The Olympus video gastroscope was introduced into the esophagus, stomach, and duodenum. Examination was performed. The scope was removed. He tolerated the procedure well and was returned to the recovery area in stable condition. FINDINGS: Esophagus: The esophagus was normal. Stomach: The stomach was normal. Duodenum: The bulb and 2nd portion were normal. IMPRESSION: Normal upper endoscopy. RECOMMENDATION: Anticoagulation may be restarted. Leighton Marks MD BC/MODL / [id number]
--- NOTE | 2024-06-04 14:50 | P.DS_ITS ---
DS: Providers Provider Date of Service: 06/04/24 Date of admission: 06/03/24 17:52 Primary care physician: Michael Morgan MD Consults: 06/03/24 17:50 Consult to Gastroenterology Routine Consulting Provider: Leighton Marks Reason for consultation: melena, anemia Consult to Nephrology Routine Consulting Provider: [facility] Reason for consultation: esrd DS: Diagnosis Discharge Diagnosis (1) Rectal bleed: Status: Acute DS: Summary Hospital Course Hospital Course: from initial hpi: 88M PMH ESRD, pafib on eliquis, cad s/p cabg, htn, , chronic systolic chf, TIA, dm, pvd, chronic unspecified pruritis on prednisone, sent in for anemia. Patient has been feeling weak over the last few days. Has noted black stools for 2-3 days. Had labs drawn 3 days prior to presentation and hemoglobin came back at 7.4. At hemodialysis was feeling weak so was sent into the ED for further eval. In ED black stools were occult positive. Patient denies chest pain, shortness of breath, fever, chills. Denies NSAID use. He does have history of GI bleeds of unclear origin. hospital course: Patient was admitted for acute blood loss anemia, was treated as upper GI bleed with IV ppi, holding apixaban. Was given 2 units of PRBC and hemoglobin improved appropriately. Was seen by GI who performed EGD which was unremarkable recommended restarting Eliquis and continuing on omeprazole 20 mg daily. Patient was noted to have ecchymotic left groin, however this has been since angiogram done on opposite side about 1 month prior to presentation and has been improving. There is no palpable hematoma and no hematoma seen in the image part of the leg from CT abdomen and pelvis. For end-stage renal disease we will continue with hemodialysis. 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 For paroxysmal atrial fibrillation his Eliquis will be restarted. For diabetes he was continued on insulin sliding scale. For aortic stenosis and chronic systolic CHF he received Lasix with his transfusions and remained euvolemic. For peripheral vascular disease and coronary disease he will be restarting Eliquis and continued on statin. For hypertension he was continued on amlodipine and Imdur. For chronic unspecified pruritus he was continued on low-dose prednisone. Patient is feeling better has no further melena and will be discharged home. Time Attestation Discharge Coordination Time (in mins): 34 Quality: Safe Use of Opioids Does Pt have an Active Cancer Diagnosis on the Problem List?: No Quality: Stroke Does the patient have a stroke diagnosis?: No Physical Exam Vital Signs: Vital Signs: Last Vital Signs Temp 97.4 F 06/04/24 14:23 Pulse 74 06/04/24 14:23 Resp 18 06/04/24 14:23 BP 112/65 06/04/24 14:23 Pulse Ox 96 06/04/24 14:23 O2 Del Method Room Air 06/04/24 14:23 O2 Flow Rate 2 06/04/24 14:10 BMI result Body Mass Index 22.7 General: AO X 3, no acute distress Resp: CTA bilateral, no accessory muscles used CVS: S1,S2,RRR, murmu GI: soft, non tender, non distended Neuro: motor grossly intact, alert Psych: appropriate affect, appropriate insight bilateral lE echymosis, no palpable hematomas DS: Data Data Completed and Pending Labs on day of discharge: Laboratory Results - last 24 hr 06/03/24 06/03/24 06/03/24 13:12 16:38 20:59 WBC RBC Hgb Hct MCV MCH MCHC RDW Plt Count MPV Absolute Nucleated RBC Nucleated RBC % (auto) Sodium Potassium Chloride Carbon Dioxide Anion Gap BUN Creatinine Estim Creat Clear Calc Estimated GFR POC Glucose 158 H Fasting Glucose Calcium Troponin I High Sens 256.7 H* Blood Type A Positive Antibody Screen NEGATIVE Crossmatch See Detail 06/04/24 06/04/24 06/04/24 05:18 05:19 07:39 WBC 8.4 RBC 2.98 L D Hgb 9.2 L D Hct 28.7 L D MCV 96.3 MCH 30.9 MCHC 32.1 RDW 16.9 H Plt Count 151 L D MPV 9.7 Absolute Nucleated RBC 0.040 H Nucleated RBC % (auto) 0.5 H Sodium 139 Potassium 4.7 Chloride 103 Carbon Dioxide 24 Anion Gap 17 BUN 65 H Creatinine 6.27 H* Estim Creat Clear Calc 7.5 Estimated GFR 8 POC Glucose 67 Fasting Glucose 66 Calcium 8.5 Troponin I High Sens Blood Type Antibody Screen Crossmatch 06/04/24 06/04/24 09:29 11:25 WBC RBC Hgb Hct MCV MCH MCHC RDW Plt Count MPV Absolute Nucleated RBC Nucleated RBC % (auto) Sodium Potassium Chloride Carbon Dioxide Anion Gap BUN Creatinine Estim Creat Clear Calc Estimated GFR POC Glucose 154 H 125 H Fasting Glucose Calcium Troponin I High Sens Blood Type Antibody Screen Crossmatch Discharge Plan Discharge Anticipated Discharge Date/Time: 06/04/24 14:48 Patient Disposition: Home, Self-Care Discharge Diagnosis: anemia Referrals: Michael Morgan MD [Primary Care Provider] - 1 Week Discharge Medications: New omeprazole 20 mg Capsule,Delayed Release(Dr/Ec) 20 mg PO DAILY@0630 Qty: 90 0RF Continued prednisone 10 mg tablet 10 mg PO DAILY Qty: 30 0RF atorvastatin 40 mg tablet 40 mg PO DAILY levothyroxine 25 mcg tablet 25 mcg PO DAILY Lokelma 10 gram powder in packet 10 g PO DAILY PRN (Reason: Hyperkalemia) acetaminophen [Tylenol] 325 mg Tablet 650 mg PO DAILY PRN (Reason: Pain) insulin aspart U-100 [Novolog FlexPen U-100 Insulin] 100 unit/mL (3 mL) Insulin Pen 7 unit SUBCUT DAILY oxycodone 5 mg Tablet 5 mg PO DAILY PRN (Reason: Pain) doxazosin 4 mg tablet 4 mg PO DAILY isosorbide mononitrate 60 mg tablet extended release 24 hr 60 mg PO DAILY Eliquis 2.5 mg tablet 2.5 mg PO BID amlodipine 5 mg tablet 5 mg PO DAILY oxycodone 5 mg tablet 5 mg PO BID insulin glargine [Lantus Solostar U-100 Insulin] 100 unit/mL (3 mL) insulin pen 8 - 12 unit subcut BEDTIME Rx Instructions: Sliding Scale Discharge Orders: Discharge Order (Routine); Ordered 06/04/24 Ordered By: Chidi Beard Diet: Advance to usual diet Activity on Discharge: As tolerated Stand Alone Forms: Patient Portal Discharge page Print Language: Iranian Care Plan Goals: manage anemia Health Concerns: anemia Plan of Treatment: start omeprazole, okay to rechallenge with eliquis Assessment: see above
--- NOTE | 2024-06-04 15:28 | PM.CNNEP ---
History of Present Illness Reason for Consult Consult date: 06/04/24 Reason for consult: End stage renal disease Chief Complaint Chief complaint: GI bleed History of Present Illness Narrative: 88M PMH ESRD, pafib on eliquis, cad s/p cabg, htn, , chronic systolic chf, TIA, dm, pvd, chronic unspecified pruritis on prednisone, sent in for anemia. Patient has been feeling weak over the last few days. Has noted black stools for 2-3 days. Had labs drawn 3 days prior to presentation and hemoglobin came back at 7.4. At hemodialysis was feeling weak so was sent into the ED for further eval. In ED black stools were occult positive. Patient denies chest pain, shortness of breath, fever, chills. Denies NSAID use. He does have history of GI bleeds of unclear origin. 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.) Patient Tobacco Use Status: Never used Tobacco Meds Allergies Allergy/AdvReac Type Severity Reaction Status Date / Time No Known Allergies Allergy Verified 06/04/24 13:34 Active Medications: Current Medications Acetaminophen (Acetaminophen 325 Mg Tablet) 650 mg PO Q6H PRN PRN Reason: Pain, Mild (Pain Scale 1-3), fever or headache Amlodipine Besylate (Amlodipine Besylate 5 Mg Tablet) 5 mg PO DAILY [facility]; Protocol Last Admin: 06/04/24 08:42 Dose: 5 mg Atorvastatin Calcium (Atorvastatin Calcium 40 Mg Tablet) 40 mg PO DAILY ADA Last Admin: 06/04/24 08:42 Dose: Not Given Calcium Carbonate (Calcium Carbonate 750 Mg Tab.Chew) 750 mg PO Q4H PRN PRN Reason: Heartburn Doxazosin Mesylate (Doxazosin Mesylate 2 Mg Tablet) 4 mg PO BEDTIME [facility]; Protocol Glucose (Glucose Gel 15 Gm Gel..Gram.) 15 gm PO Q15M PRN; Protocol PRN Reason: per Hypoglycemia Standing Ord. Dextrose (D10) 250 mls @ 750 mls/hr IV Q15M PRN; Protocol PRN Reason: per Hypoglycemia Standing Ord. Last Infusion: 06/04/24 08:45 Dose: Infused Insulin Glargine (Insulin Glargine,Hum.Rec.Anlog 100 Unit/Ml 10 Ml Vial) 6 unit SUBCUT BEDTIME [facility] Insulin Human Lispro (Insulin Lispro 100 Unit/Ml 3 Ml Vial) 0 unit SUBCUT QIDACHS [facility]; Protocol Last Admin: 06/04/24 11:42 Dose: Not Given Isosorbide Mononitrate (Isosorbide Mononitrate 60 Mg Tab.Er.24h) 60 mg PO DAILY [facility]; Protocol Last Admin: 06/04/24 08:42 Dose: 60 mg Levothyroxine Sodium (Levothyroxine Sodium 25 Mcg Tablet) 25 mcg PO DAILY@629 [facility] Last Admin: 06/04/24 05:37 Dose: 25 mcg Magnesium Hydroxide (Milk Of Magnesia 30 Ml Oral.Susp) 30 ml PO DAILY PRN PRN Reason: Constipation Melatonin (Melatonin 3 Mg Tablet) 6 mg PO BEDTIME PRN PRN Reason: Insomnia Omeprazole (Omeprazole 20 Mg Capsule.Dr) 20 mg PO DAILY@30 [facility] Oxycodone HCl (Oxycodone Hcl Immed Release 5 Mg Tablet) 5 mg PO DAILY PRN PRN Reason: Pain, Severe (Pain Scale 7-10) Oxycodone HCl (Oxycodone Hcl Immed Release 5 Mg Tablet) 5 mg PO BID [facility] Last Admin: 06/04/24 08:42 Dose: 5 mg Prednisone (Prednisone 10 Mg Tablet) 10 mg PO DAILY [facility] Last Admin: 06/04/24 08:42 Dose: 10 mg Sodium Chloride (0.9 % Sodium Chloride Flush 3 Ml Syringe) 3 ml IVFLUSH QSHIFT [facility] Last Admin: 06/04/24 08:18 Dose: 3 ml Sodium Zirconium Cyclosilicate (Sodium Zirconium Cyclosilicate 10 Gm Powd.Pack) 10 gm PO DAILY PRN PRN Reason: Hyperkalemia Home Medications ?Medication ?Instructions ?Recorded ?Confirmed ?Last Taken ?Type amlodipine 5 mg tablet 5 mg PO DAILY 04/01/24 06/03/24 05/31/24 History apixaban 2.5 mg tablet (Eliquis) 2.5 mg PO BID 04/01/24 06/03/24 06/03/24 History doxazosin 4 mg tablet 4 mg PO DAILY 04/01/24 06/03/24 06/02/24 History insulin glargine 100 unit/mL (3 8 - 12 unit subcut BEDTIME 04/01/24 06/03/24 06/02/24 History mL) subcutaneous pen (Lantus Solostar U-100 Insulin) isosorbide mononitrate 60 mg 60 mg PO DAILY 04/01/24 06/03/24 06/02/24 History tablet,extended release 24 hr oxycodone 5 mg tablet 5 mg PO BID 04/01/24 06/03/24 06/03/24 History acetaminophen 325 mg tablet 650 mg PO DAILY PRN Pain 06/03/24 06/03/24 Unknown History (Tylenol) atorvastatin 40 mg tablet 40 mg PO DAILY 06/03/24 06/03/24 06/02/24 History insulin aspart U-100 100 unit/mL 7 unit subcut DAILY 06/03/24 06/03/24 06/02/24 History (3 mL) subcutaneous pen (Novolog FlexPen U-100 Insulin aspart) levothyroxine 25 mcg tablet 25 mcg PO DAILY 06/03/24 06/03/24 06/02/24 History oxycodone 5 mg tablet 5 mg PO DAILY PRN Pain 06/03/24 06/03/24 Unknown History sodium zirconium cyclosilicate 10 10 g PO DAILY PRN Hyperkalemia 06/03/24 06/03/24 Unknown History gram oral powder packet (Lokelma) Physical Exam Vital Signs: Last Vital Signs Temp 97.4 F 06/04/24 14:23 Pulse 74 06/04/24 14:23 Resp 18 06/04/24 14:23 BP 112/65 06/04/24 14:23 Pulse Ox 96 06/04/24 14:23 O2 Del Method Room Air 06/04/24 14:23 O2 Flow Rate 2 06/04/24 14:10 BMI result Body Mass Index 22.7 Awake. Comfortable. Neck is supple. Mucosa moist. Lungs bilateral scattered rhonchi. Heart S1-S2 heard no gallop. Abdomen soft. Extremities no edema. No involuntary movements. No myoclonus. Results Lab Results 06/04/24 05:19 06/04/24 05:18 Lab results: Chemistry 06/03/24 06/04/24 13:12 05:18 Sodium 138 139 Potassium 4.6 4.7 Carbon Dioxide 26 24 BUN 54 H 65 H Creatinine 5.43 H* 6.27 H* Calcium 9.0 8.5 Hematology 06/03/24 06/04/24 13:12 05:19 WBC 10.6 8.4 Hgb 7.4 L 9.2 L D Plt Count 202 151 L D Assessment and Plan (1) ESRD (end stage renal disease): Status: Acute (2) Anemia: Status: Acute Plan End stage renal disease. Usually undergoes dialysis Monday. We will resume dialysis as per protocol. Anemia Most likely due to GI loss superimposed on erythropoietin deficiency due setting of end stage renal disease. Agree with blood transfusion. Resume Epogen. GI bleed Await GI workup Procedures Date of Service Date of Service: 06/04/24
--- NOTE | 2024-06-04 15:50 | MHC.CM.PN ---
IMM 06/04/24 Male 88 DX U GIB. Patient from home with . He was BIBA for rectal bleeding. He received a GI consult. He has been scoped today. No source of GIB found. The patient will discharge to home today. A PPI has been prescribed. [facility] [employer] [facility]. DP resume [facility] + [employer] services. Patient has arranged for a ride home from a friend.
== END 2024-06-04 17:04 | disposition home or self-care (01) | DRG 377 ==
LOC: HO.ED 14:26 → HO.EDOVER 17:55 → HO.S3 19:23
PROVIDERS: Internal Medicine Gastroenterology; Admitting Provider Internal Medicine; Emergency Provider Emergency Medicine; PCP Hospitalist; Visit Provider Internal Medicine
PROC: 0DJ08ZZ Inspection of Upper Intestinal Tract, Via Natural or Artificial Opening Endoscopic (ICD-10-PCS; principal; 2024-06-04 16:20)
DX: K92.1 Melena (principal); N18.6 End stage renal disease; I13.2 Hypertensive heart and chronic kidney disease with heart failure and with stage 5 chronic kidney disease, or end stage renal disease; D62 Acute posthemorrhagic anemia; N25.81 Secondary hyperparathyroidism of renal origin; I50.22 Chronic systolic (congestive) heart failure; I48.0 Paroxysmal atrial fibrillation; E11.51 Type 2 diabetes mellitus with diabetic peripheral angiopathy without gangrene; D63.1 Anemia in chronic kidney disease; I35.0 Nonrheumatic aortic (valve) stenosis; L29.9 Pruritus, unspecified; I25.10 Atherosclerotic heart disease of native coronary artery without angina pectoris; E11.22 Type 2 diabetes mellitus with diabetic chronic kidney disease; Z99.2 Dependence on renal dialysis; Z79.4 Long term (current) use of insulin; Z79.01 Long term (current) use of anticoagulants; Z95.1 Presence of aortocoronary bypass graft; Z79.52 Long term (current) use of systemic steroids; Z79.890 Hormone replacement therapy; Z79.899 Other long term (current) drug therapy
CPT/HCPCS: 36415; 71045; 74176; 80048; 80076; 82272; 82947; 83690; 83880; 84484; 85025; 85027; 85610; 85730; 86850; 86900; 86901; 86920; 93005; 99285; J1940; J2470; J2598; J2704; P9016

== ENCOUNTER → 2024-06-03 12:59 | Outpatient (BNV) | payer MEDICARE, BC, SELFPAY | PROVIDERS: Admitting Provider Internal Medicine; Emergency Provider Emergency Medicine; PCP Hospitalist; Visit Provider Internal Medicine Cardiovascular Disease | DX: I49.1 Atrial premature depolarization (principal); I45.10 Unspecified right bundle-branch block; R94.31 Abnormal electrocardiogram [ECG] [EKG] | CPT/HCPCS: 93010 ==

== ENCOUNTER → 2024-06-03 17:52 | Outpatient (BNV) | payer MEDICARE, BC, SELFPAY | PROVIDERS: Admitting Provider Internal Medicine; Emergency Provider Emergency Medicine; PCP Hospitalist; Visit Provider Internal Medicine | DX: K62.5 Hemorrhage of anus and rectum (principal) | CPT/HCPCS: 99223; 99239; 99499 ==

== ENCOUNTER → 2024-06-03 17:52 | Outpatient (BNV) | payer MEDICARE, BC, SELFPAY | PROVIDERS: Admitting Provider Internal Medicine; Emergency Provider Emergency Medicine; PCP Hospitalist; Visit Provider Internal Medicine Hypertension Specialist | DX: N18.6 End stage renal disease (principal); D63.1 Anemia in chronic kidney disease | CPT/HCPCS: 99223 ==

== ENCOUNTER → 2024-06-27 | Outpatient (BNV) | payer MEDICARE, BC, SELFPAY | PROVIDERS: PCP Hospitalist; Visit Provider Internal Medicine Hypertension Specialist | DX: N18.6 End stage renal disease (principal) | CPT/HCPCS: 90961 ==

== ENCOUNTER → 2024-07-28 | Outpatient (BNV) | payer MEDICARE, BC, SELFPAY | PROVIDERS: PCP Hospitalist; Visit Provider Internal Medicine Hypertension Specialist | DX: N18.6 End stage renal disease (principal) | CPT/HCPCS: 90961 ==